=== PATIENT | male | born 2000 | race Caucasian/White ===

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

== ENCOUNTER 2021-12-15 10:31 | Emergency (ER) | payer OTHER ==
[~2021-12-15] VITALS: Ht 190.5 cm; Wt 63.5 kg
== END 2021-12-15 11:53 | disposition home or self-care (01) ==
LOC: ED 10:31
DX: S02.2XXA Fracture of nasal bones, initial encounter for closed fracture (principal); Z88.1 Allergy status to other antibiotic agents; Z79.899 Other long term (current) drug therapy; Y08.89XA Assault by other specified means, initial encounter; Y93.89 Activity, other specified; Y92.89 Other specified places as the place of occurrence of the external cause; Y99.8 Other external cause status

== ENCOUNTER 2022-03-12 09:55 | Emergency (ER) | payer OTHER ==
[~2022-03-12] VITALS: Ht 190.5 cm; Wt 63.5 kg
== END 2022-03-12 10:22 | disposition home or self-care (01) ==
LOC: ED 09:55
DX: M62.838 Other muscle spasm (principal); Z88.1 Allergy status to other antibiotic agents; Z98.890 Other specified postprocedural states

== ENCOUNTER 2023-03-12 16:46 | Emergency (ER) | payer OTHER ==
[~2023-03-12] VITALS: Ht 190.5 cm; Wt 65.8 kg
[2023-03-12] MEDS ORDERED: PREDNISONE50 MG PO (17:10)
== END 2023-03-12 17:25 | disposition home or self-care (01) ==
LOC: ED 16:46
DX: J06.9 Acute upper respiratory infection, unspecified (principal); F90.9 Attention-deficit hyperactivity disorder, unspecified type; Z88.1 Allergy status to other antibiotic agents; Z98.890 Other specified postprocedural states; R19.7 Diarrhea, unspecified

== ENCOUNTER 2023-08-01 06:23 | Emergency (ER) | payer OTHER ==
[~2023-08-01] VITALS: Ht 190.5 cm; Wt 63.5 kg
[~2023-08-01 06:23] MED LIST changes: +PREDNISONE50 MG PO
[2023-08-01] MEDS ORDERED: Meclizine Hydrochloride 25 MG TAB PO ONE (06:45)
[2023-08-01] MEDS ORDERED: SODIUM CHLORIDE 0.9% 1,000 ML IV ONE (06:45)
[2023-08-01 07:12] LABS: BASO % 0.9 % (0.0-1.0); EOS # 0.2 10*3/uL (0.0-0.4); EOS % 3.9 % (1.0-4.0); LYMPH # 1.6 10*3/uL (1.3-4.4); LYMPH % 34.6 % (27.0-41.0); MEAN CELL VOLUME 89.7 fl (80.0-94.0); MEAN CORPUSCULAR HGB 29.9 pg (27.0-31.0); MEAN CORPUSCULAR HGB CONC 33.3 g/dl (33.0-37.0); MEAN PLATELET VOLUME 10.4 fl (9.6-12.3); MONO # 0.4 10*3/uL (0.1-1.0); MONO % 8.7 % (3.0-9.0); NEUT # 2.4 10*3/uL (2.3-7.9); NEUT % 51.7 % (47.0-73.0); PLATELET COUNT AUTOMATED 210 10*3/uL (130-400); RED BLOOD COUNT 4.68 10*6/uL (4.50-5.90); RED CELL DISTRI WIDTH 12.7 % (0-14.5); WHITE BLOOD COUNT 4.6 10*3/uL (4.8-10.8)
[2023-08-01 07:27] LABS: ACT PARTIAL THROMBO TIME 26.4 SECONDS (20.0-32.1)
[2023-08-01 07:38] LABS: ALKALINE PHOSPHATASE 57 U/L (46-116); BUN 13 mg/dl (9-23); CHLORIDE 105 mmol/L (98-107); CPK 844 U/L (34-171); FREE T4 1.03 ng/dl (0.89-1.76); LIPASE 66 U/L (12-53); POTASSIUM 3.7 mmol/L (3.4-5.1); SGPT/ALT 21 U/L (5-49); TOTAL PROTEIN 7.1 gm/dL (6.0-8.0)
[2023-08-01] MEDS ORDERED: WAL-DRAM 225 MG PO (08:12)
== END 2023-08-01 08:54 | disposition home or self-care (01) ==
LOC: ED 06:23
PROVIDERS: Emergency Medicine
DX: R07.89 Other chest pain (principal); Z20.822 Contact with and (suspected) exposure to COVID-19; R06.02 Shortness of breath; R42 Dizziness and giddiness; R53.1 Weakness; Z88.1 Allergy status to other antibiotic agents; Z79.2 Long term (current) use of antibiotics; Z79.899 Other long term (current) drug therapy; Z98.890 Other specified postprocedural states

== ENCOUNTER 2024-06-25 11:47 | Emergency (ER) | payer OTHER ==
[~2024-06-25] VITALS: Ht 187.9 cm; Wt 63.5 kg
[~2024-06-25 11:47] MED LIST changes: +WAL-DRAM 225 MG PO
[2024-06-25] MEDS ORDERED: CYCLOBENZAPRINE10 MG PO (12:32)
== END 2024-06-25 12:45 | disposition home or self-care (01) ==
LOC: ED 11:47
DX: S39.011A Strain of muscle, fascia and tendon of abdomen, initial encounter (principal); Z79.899 Other long term (current) drug therapy; Z88.1 Allergy status to other antibiotic agents; Z98.890 Other specified postprocedural states; X58.XXXA Exposure to other specified factors, initial encounter; Y93.89 Activity, other specified; Y92.89 Other specified places as the place of occurrence of the external cause; Y99.8 Other external cause status

== ENCOUNTER → 2024-12-26 | Outpatient (CLI) | payer OTHER ==
[~2024-12-26] MED LIST changes: +CYCLOBENZAPRINE10 MG PO
== END | disposition home or self-care (01) ==
LOC: LAB 09:17
PROVIDERS: ATTEND Family Medicine
DX: R79.89 Other specified abnormal findings of blood chemistry (principal); R53.83 Other fatigue